=== PATIENT | female | born 1950 | race Caucasian/White ===

== ENCOUNTER 2016-07-08 05:55 | Day surgery (SDC) | payer OTHER ==
--- NOTE | ~2016-07-08 | EGD ---
EGD REPORT [facility] [address] [place]. [address] NAME: JAYNA BARAHONA : [birth year] STATUS : REG [facility]#: [id number] AGE: 65 ADM/REG DATE : 07/08/16 MR#: [id number] REPORT SERV DATE: 07/08/16 DICTATED BY: NATHALIE ERAZO DATE: 07/08/16 REPORT STATUS : Draft TRANSCRIBED BY: [facility] DATE: 07/08/16 [facility] Patient Name: Jayna Barahona Date of : 1950 Attending MD: NATHALIE ERAZO MD Procedure Date No Time: 07/08/2016 Procedure: Colonoscopy Indications: High risk colon cancer surveillance: Personal history of colonic polyps; last exam years ago. Patient Profile: Informed consent was obtained from the patient by me prior to the procedure. Risks, benefits, and alternatives were discussed including the risk of bleeding, perforation, infection, reaction to medicine, missed lesion, and cardiopulmonary complications. Referring MD: ASHKAN SINGLETON Medicines: Monitored Anesthesia Care Complications: No immediate complications. Procedure: Pre-Anesthesia Assessment: - ASA Grade Assessment: III - A patient with severe systemic disease. After I obtained informed consent, the scope was passed under direct vision. Throughout the procedure, the patient's blood pressure, pulse, and oxygen saturations were monitored continuously. The PCF H190L [id number] was introduced through the anus and advanced to the cecum, identified by appendiceal orifice and ileocecal valve. The colonoscope was slowly withdrawn with careful examination all mucosal surfaces including specific attention around flexures and tip deflection behind folds; retroflexion performed in rectum. The colonoscopy was performed without difficulty. The patient tolerated the procedure well. The quality of the bowel preparation was adequate. The ileocecal valve, appendiceal orifice and rectum were photographed. Findings: A sessile polyp was found in the sigmoid colon. The polyp was 5 mm in size. The polyp was removed with a cold biopsy forceps. Resection and retrieval were complete. A few small-mouthed diverticula were found in the sigmoid colon. External hemorrhoids were found, and they were mild. Impression: - One 5 mm polyp in the sigmoid colon. Resected and retrieved. - Diverticulosis in the sigmoid colon. EGD REPORT [address] [address] NAME: JAYNA BARAHONA : [birth year] STATUS : REG [facility]#: [id number] AGE: 65 ADM/REG DATE : 07/08/16 MR#: [id number] REPORT SERV DATE: 07/08/16 DICTATED BY: NATHALIE ERAZO DATE: 07/08/16 REPORT STATUS : Draft TRANSCRIBED BY: [employer] [facility] DATE: 07/08/16 - External hemorrhoids. Recommendation: - Patient has a contact number available for emergencies. The signs and symptoms of potential delayed complications were discussed with the patient. Return to normal activities tomorrow. Written discharge instructions were provided to the patient. - Regular diet. - Continue present medications. - Await pathology results. - Repeat colonoscopy for surveillance based on pathology results. Procedure Code(s): --- Professional --- 64186, Colonoscopy, flexible, proximal to splenic flexure; with biopsy, single or multiple Diagnosis Code(s): --- Professional --- D12.5, Benign neoplasm of sigmoid colon K64.4, Residual hemorrhoidal skin tags K57.30, Diverticulosis of large intestine without perforation or abscess without bleeding Z86.010, Personal history of colonic polyps CPT copyright 2013 [employer]. All rights reserved. The codes documented in this report are preliminary and upon supervisor ride assembly review may be revised to meet current compliance requirements. NATHALIE ERAZO MD 07/08/2016 7:56 AM This report has been signed electronically. Number of Addenda: 0 Note Initiated On: 07/08/2016 7:28 AM Scope Withdrawal Time 0 hours 10 minutes 32 seconds [id number] [id number]
--- NOTE | ~2016-07-08 | EGD ---
EGD REPORT [facility] [address] [place]. [address] NAME: JAYNA BARAHONA : [birth year] STATUS : REG [facility]#: [id number] AGE: 65 ADM/REG DATE : 07/08/16 MR#: [id number] REPORT SERV DATE: 07/08/16 DICTATED BY: NATHALIE ERAZO DATE: 07/08/16 REPORT STATUS : Draft TRANSCRIBED BY: [facility] DATE: 07/08/16 Endoscopy Center Patient Name: Jayna Barahona Date of : 1950 Attending MD: NATHALIE ERAZO MD Procedure Date No Time: 07/08/2016 Procedure: Colonoscopy Indications: High risk colon cancer surveillance: Personal history of colonic polyps; last exam years ago. Patient Profile: Informed consent was obtained from the patient by me prior to the procedure. Risks, benefits, and alternatives were discussed including the risk of bleeding, perforation, infection, reaction to medicine, missed lesion, and cardiopulmonary complications. Referring MD: ASHKAN SINGLETON Medicines: Monitored Anesthesia Care Complications: No immediate complications. Procedure: Pre-Anesthesia Assessment: - ASA Grade Assessment: III - A patient with severe systemic disease. After I obtained informed consent, the scope was passed under direct vision. Throughout the procedure, the patient's blood pressure, pulse, and oxygen saturations were monitored continuously. The PCF H190L [id number] was introduced through the anus and advanced to the cecum, identified by appendiceal orifice and ileocecal valve. The colonoscope was slowly withdrawn with careful examination all mucosal surfaces including specific attention around flexures and tip deflection behind folds; retroflexion performed in rectum.The colonoscopy was performed without difficulty. The patient tolerated the procedure well. The quality of the bowel preparation was adequate. The ileocecal valve, appendiceal orifice and rectum were photographed. Findings: A sessile polyp was found in the sigmoid colon. The polyp was 5 mm in size. The polyp was removed with a cold biopsy forceps. Resection and retrieval were complete. A few small-mouthed diverticula were found in the sigmoid colon. External hemorrhoids were found, and they were mild. Impression: - One 5 mm polyp in the sigmoid colon. Resected and retrieved. - Diverticulosis in the sigmoid colon. EGD REPORT [address] [address] NAME: JAYNA BARAHONA : [birth year] STATUS : REG [facility]#: [id number] AGE: 65 ADM/REG DATE : 07/08/16 MR#: [id number] REPORT SERV DATE: 07/08/16 DICTATED BY: NATHALIE ERAZO DATE: 07/08/16 REPORT STATUS : Draft TRANSCRIBED BY: [employer] DATE: 07/08/16 - External hemorrhoids. Recommendation: - Patient has a contact number available for emergencies. The signs and symptoms of potential delayed complications were discussed with the patient. Return to normal activities tomorrow. Written discharge instructions were provided to the patient. - Regular diet. - Continue present medications. - Await pathology results. - Repeat colonoscopy for surveillance based on pathology results. Procedure Code(s): --- Professional --- 71160, Colonoscopy, flexible, proximal to splenic flexure; with biopsy, single or multiple Diagnosis Code(s): --- Professional --- D12.5, Benign neoplasm of sigmoid colon K64.4, Residual hemorrhoidal skin tags K57.30, Diverticulosis of large intestine without perforation or abscess without bleeding Z86.010, Personal history of colonic polyps CPT copyright 2013 [employer]. All rights reserved. The codes documented in this report are preliminary and upon concrete paving supervisor review may be revised to meet current compliance requirements. NATHALIE ERAZO MD 07/08/2016 7:56 AM This report has been signed electronically. Number of Addenda: 0 Note Initiated On: 07/08/2016 7:28 AM Scope Withdrawal Time 0 hours 10 minutes 32 seconds [id number] [id number]
[~2016-07-08 05:55] MED LIST: AGGRENOX PO; ASAB PO; AT25 PO; BUPROPION 150 MG PO; CIP5 PO; GLUCOPHAGE1000 MG PO; HUMAMIXPEN SC; JANUVIA100 MG PO; LEVEMFLXPN SC; LEVOTHYROXIN75 MCG PO; LOFIBRA54 MG PO; MICROZIDE PO; NEUR300 PO; PRAVACHOL40 MG PO; PROMEGA PO; PROZAC PO; TRAZODONE150 MG PO; ZESTRIL2.5 MG PO; ZYRTEC ALLGY10 MG PO
== END 2016-07-08 23:59 | disposition home or self-care (01) ==
LOC: DMU 05:55
PROVIDERS: Internal Medicine Gastroenterology
PROC: 0DBN8ZX Excision of Sigmoid Colon, Via Natural or Artificial Opening Endoscopic, Diagnostic (ICD-10-PCS; principal; 2016-07-08 07:30)
DX: Z12.11 Encounter for screening for malignant neoplasm of colon (principal); K63.5 Polyp of colon; K57.30 Diverticulosis of large intestine without perforation or abscess without bleeding; K64.4 Residual hemorrhoidal skin tags; Z86.010 Personal history of colon polyps; E11.9 Type 2 diabetes mellitus without complications; Z88.0 Allergy status to penicillin; I10 Essential (primary) hypertension; E78.00 Pure hypercholesterolemia, unspecified; M19.90 Unspecified osteoarthritis, unspecified site; K21.9 Gastro-esophageal reflux disease without esophagitis; F32.9 Major depressive disorder, single episode, unspecified; Z98.41 Cataract extraction status, right eye; Z90.710 Acquired absence of both cervix and uterus; Z90.49 Acquired absence of other specified parts of digestive tract; Z98.42 Cataract extraction status, left eye
CPT/HCPCS: 82962; 88305; A9270-GY